=== PATIENT | male | born 1940 | race Caucasian/White ===

== ENCOUNTER 2020-07-14 07:07 | Emergency (ER) | payer MEDICARE, OTHER ==
[2020-07-14 07:56] LABS: BILIRUBIN,URINE NEGATIVE (NEGATIVE); GLUCOSE, URINE (UA) NEGATIVE (NEGATIVE); KETONES,URINE (UA) NEGATIVE (NEGATIVE); LEUKOCYTE ESTERASE, URINE NEGATIVE (NEGATIVE); NITRITE,URINE NEGATIVE (NEGATIVE); OCCULT BLOOD,URINE SMALL (NEGATIVE); PROTEIN,URINE NEGATIVE (NEGATIVE); UROBILINOGEN,URINE 0.2 (NORMAL) E.U./dL (NORMAL)
--- NOTE | 2020-07-14 08:03 | ED Physician Documentation ---
History of Present Illness - Stated complaint Stated Complaint: MALE - Chief complaint Chief Complaint: Abd Pain - History obtained from History obtained from: Patient - Additonal information Additional information: Patient comes emergency department chief complaint of urinary retention and increasing low abdominal discomfort since about 1500 yesterday. He states he has not had any urine output since then. Patient states that he has been somewhat constipated over the last few days, which is also unusual for him. He has had no stool incontinence. Patient does not have any low back issues that he knows of. He states he regularly goes on extended bike rides and that his back never bothers him. He has not had any weakness, numbness, or tingling in his lower extremities. Patient states that he has never had issues with urinary retention before. He is not known to have any prostate issues. He was not having any dysuria or frequency prior to onset of retention. No fever or chills. No nausea or vomiting. Patient states that he is otherwise fairly healthy. 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 He has a primary care physician but is not established with a urologist. No other complaints at this time. Review of Systems Ten Systems: 10 systems reviewed and negative Constitutional: reports: Reviewed and negative Eyes: reports: Reviewed and negative Ears: reports: Reviewed and negative Nose: reports: Reviewed and negative Throat: reports: Reviewed and negative Cardiac: reports: Reviewed and negative Respiratory: reports: Reviewed and negative GI: reports: Reviewed and negative : reports: Unable to Void Skin: reports: Reviewed and negative Musculoskeletal: reports: Reviewed and negative Neurologic: reports: Reviewed and negative Psychiatric: reports: Reviewed and negative Endocrine: reports: Reviewed and negative Immunocompromised: reports: Reviewed and negative PD PAST MEDICAL HISTORY - Past Medical History Past Medical History: Yes Cardiovascular: Hypertension Respiratory: None Neuro: None Endocrine/Autoimmune: None GI: None : None HEENT: None Psych: None Musculoskeletal: None Derm: None - Past Surgical History Past Surgical History: No - Allergies Allergies/Adverse Reactions: Allergies Allergy/AdvReac Type Severity Reaction Status Date / Time No Known Drug Allergies Allergy Verified 07/14/20 07:11 - Social History Does the pt smoke?: No Smoking Status: Never smoker Does the pt drink ETOH?: Yes Does the pt have substance abuse?: No - Immunizations Immunizations are current?: Yes - POLST Patient has POLST: No PD ED PE NORMAL - Vitals Vital signs reviewed: Yes - General General: Alert and oriented X 3, No acute distress - HEENT HEENT: Atraumatic, PERRL, EOMI, Moist mucous membranes - Neck Neck: Supple, no meningeal sign - Cardiac Cardiac: RRR, No murmur - Respiratory Respiratory: No respiratory distress, Clear bilaterally - Abdomen Abdomen: Soft, Other (Initially distended with moderate tenderness over suprapubic area.) - Derm Derm: Normal color, Warm and dry, No rash - Extremities Extremities: No deformity, No edema, No calf tenderness / cord - Neuro Neuro: Alert and oriented X 3, carton stamper 2-12 intact, No motor deficit, No sensory deficit, Normal speech - Psych Psych: Normal mood, Normal affect Results - Vitals Vitals: Vital Signs - 24 hr 07/14/20 07/14/20 07:11 09:22 Temperature 36.7 C 36.4 C L Heart Rate 84 84 Respiratory 18 18 Rate Blood Pressure 192/102 H 184/84 H O2 Saturation 97 99 Oxygen O2 Source Room air - Labs Labs: Laboratory Tests 07/14/20 07:45 Urine Color YELLOW Urine Clarity CLEAR Urine pH 6.0 Ur Specific [place] 1.010 Urine Protein NEGATIVE Urine Glucose (UA) NEGATIVE Urine Ketones NEGATIVE Urine Occult Blood SMALL H Urine Nitrite NEGATIVE Urine Bilirubin NEGATIVE Urine Urobilinogen 0.2 (NORMAL) Ur Leukocyte Esterase NEGATIVE Urine RBC 0-5 Urine WBC 0-3 Ur Squamous Epith Cells NONE SEEN Urine Bacteria None Seen Ur Microscopic Review INDICATED Urine Culture Comments NOT INDICATED PD MEDICAL DECISION MAKING - ED course Complexity details: reviewed results, re-evaluated patient, considered differential, d/w patient ED course: Bladder scan was performed and showed the patient to have over 900 cc of urine in his bladder. Hill catheter was placed and patient had immediate output of 1200 cc of urine, which was clear and mildly yellow. Urinalysis was sent. Patient reported feeling much better after emptying of his bladder. Nurse did note that Hill was quite difficult to pass, meeting a lot of resistance in the process. Leg bag was attached to the patient's Hill. I discussed with him the importance of follow-up with urology, and have given him a number of options. Discussed with the patient who would like the catheter to be in for 2 to 3 days, but if he cannot get an appointment with urology, then he may see his family doctor as soon as possible after 2 days to get the catheter removed and have another trial of urination. Patient was agreeable to this plan we have discussed the usual indications for return. Departure - Departure Disposition: 01 Home, Self Care Clinical Impression: Acute urinary retention Condition: Stable Instructions: ED Catheter Care Sergio, SHIVA Retention Urinary Male Follow-Up: Santy Dickerson MD [Physician No Access] - Alverto Caldwell MD [Physician No Access] - Julio Cesar Rowe MD [Provider Admit Priv/Credential] - Ernesto Rm MD [Provider Admit Priv/Credential] - Deanna Fairbanks MD [Physician No Access] - Comments: Your urinalysis looks goodno sign of urinary tract infection. You will need t o follow-up with urology, preferably by the end of the week, for a follow-up visit and possibly to have the catheter removed. Based on the difficulty passing the catheter, it is very likely that your prostate is enlarged. This is the most common cause of urinary retention in men. If you are unable to see the urologist in a timely manner, then you may see your primary care physician on Monday or next Monday to have the catheter removed there, and instead. However, it would still be most ideal if you do follow-up with the urologist, particularly if the urinary retention recurs. Discharge Date/Time: 07/14/20 09:25
[2020-07-14 08:10] LABS: BACTERIA,URINE None Seen /HPF (None Seen); CLARITY,URINE CLEAR (CLEAR); RBC,URINE 0-5 /HPF (0-5); SQUAMOUS EPITHELIAL CELL,UR NONE SEEN (<= Few); WBC,URINE 0-3 /HPF (0-3)
[2020-07-14 09:25] VITALS: BP 184/84
== END 2020-07-14 09:25 | disposition home or self-care (01) ==
LOC: ED 07:07
DX: R33.9 Retention of urine, unspecified (principal); I10 Essential (primary) hypertension
CPT/HCPCS: 51702; 51798; 81001; 81003; 87086; 99283; 99284

== ENCOUNTER 2021-02-21 04:31 | Emergency (ER) | payer MEDICARE ==
--- NOTE | 2021-02-21 04:39 | ED Physician Documentation ---
PD HPI MALE - Stated complaint Stated Complaint: L ABDOMINAL PX/URINARY RETENTION - History obtained from History obtained from: Patient, Family (spouse) - History of Present Illness Timing - onset: Today (this evening (02/20)) Timing - details: Gradual onset Pain level now: 8 Associated symptoms: Unable to urinate, Abdominal pain (suprapubic) Similar symptoms before: Diagnosis (T+R for similar symptoms earlier this year in this ED, had parra placed with large volume UO that correlated with resolution of symptoms.) Recently seen: Not recently seen - Additional information Additional information: Since this evening (02/20), patient has had gradual onset but steadily increasing suprapubic pain and fullness, inability to urinate despite increasing urge. He was T+R from this ED in July 2020 for same symptoms, symptoms resolved with placement of parra catheter. He has followed up with a urologist in [place]; he does not recall a specific diagnosis/reason given for the urinary retention. He does not recall having this problem any other time until tonight. Review of Systems Constitutional: denies: Fever GI: reports: Abdominal Pain (suprapubic). denies: Nausea, Vomiting : reports: Unable to Void PD PAST MEDICAL HISTORY - Past Medical History Cardiovascular: Hypertension Respiratory: None Neuro: None Endocrine/Autoimmune: None GI: None : None HEENT: None Psych: None Musculoskeletal: None Derm: None - Past Surgical History Past Surgical History: No - Present Medications Home Medications: Ambulatory Orders Medication Instructions Recorded Confirmed Tamsulosin [Flomax] 0.4 mg PO QID 02/21/21 02/21/21 - Allergies Allergies/Adverse Reactions: Allergies Allergy/AdvReac Type Severity Reaction Status Date / Time No Known Drug Allergies Allergy Verified 07/14/20 07:11 - Social History Does the pt smoke?: No Smoking Status: Never smoker Does the pt drink ETOH?: Yes Does the pt have substance abuse?: No - Immunizations Immunizations are current?: Yes - POLST Patient has POLST: No PD ED PE NORMAL - Vitals Vital signs reviewed: Yes - General General: Alert and oriented X 3, Well developed/nourished, Other (appears to be in significant discomfort, shifting around on bed at times and very uncomfortable when RN performs bladder scan) - Abdomen Abdomen: Soft, Other (suprapubic distention and TTP) Results - Vitals Vitals: Vital Signs - 24 hr 02/21/21 04:41 Temperature 36.5 C Heart Rate 77 Respiratory 16 Rate Blood Pressure 171/98 H O2 Saturation 98 Oxygen O2 Source Room air - Labs Labs: Laboratory Tests 02/21/21 04:56 Urine Color YELLOW Urine Clarity CLEAR Urine pH 6.0 Ur Specific [place] <=1.005 Urine Protein NEGATIVE Urine Glucose (UA) NEGATIVE Urine Ketones NEGATIVE Urine Occult Blood TRACE-INTA Urine Nitrite NEGATIVE Urine Bilirubin NEGATIVE Urine Urobilinogen 0.2 (NORMAL) Ur Leukocyte Esterase NEGATIVE Ur Microscopic Review NOT INDICATED Urine Culture Comments NOT INDICATED PD MEDICAL DECISION MAKING - ED course Complexity details: reviewed old records, reviewed results, re-evaluated patient, considered differential, d/w patient, d/w family ED course: beside bladder scan showed approximately 1000 milliliters. ED RN placed 16 Fr parra on first attempt; there was immediate brisk urine output, clear yellow, total of 1030 cc with complete resolution of symptoms. Reexam of abdomen reveals no distention and no tenderness to palpation. UA is negative except for trace blood on macro. Discharged with parra in place, instructed to follow up with his urologist but can follow up with his PMD if he cannot otherwise be seen within the next 5 days. I also presented the option to patient and his self- removal of the catheter if they are comfortable with this and provided they understand how to properly remove the catheter. They indicate they would consider this method if they cannot arrange timely follow up and syringe provided with instruction on how to remove the catheter. Also given option of returning to ED for catheter removal Departure - Departure Disposition: 01 Home, Self Care Clinical Impression: Urinary retention Condition: Good Instructions: ED Catheter Care Sergio, SHIVA Retention Urinary Male Comments: Follow up with your urologist this week for reevaluation and likely removal of the catheter. Discharge Date/Time: 02/21/21 05:38
[2021-02-21 04:45] VITALS: BP 171/98
[2021-02-21 05:07] LABS: BILIRUBIN,URINE NEGATIVE (NEGATIVE); CLARITY,URINE CLEAR (CLEAR); GLUCOSE, URINE (UA) NEGATIVE (NEGATIVE); KETONES,URINE (UA) NEGATIVE (NEGATIVE); LEUKOCYTE ESTERASE, URINE NEGATIVE (NEGATIVE); NITRITE,URINE NEGATIVE (NEGATIVE); OCCULT BLOOD,URINE TRACE-INTA (NEGATIVE); PROTEIN,URINE NEGATIVE (NEGATIVE); UROBILINOGEN,URINE 0.2 (NORMAL) E.U./dL (NORMAL)
== END 2021-02-21 05:38 | disposition home or self-care (01) ==
LOC: ED 04:31
DX: R33.9 Retention of urine, unspecified (principal)
CPT/HCPCS: 51702; 51798; 81001; 81003; 87086; 99283

== ENCOUNTER 2021-10-07 08:04 | Emergency (ER) | payer MEDICARE ==
--- NOTE | 2021-10-07 08:33 | ED Physician Documentation ---
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 This morning he awoke with suprapubic pain and inability to urinate and is lower abdomen has increased in size as the morning has gone on. Review of Systems Constitutional: denies: Fever Eyes: denies: Decreased vision Nose: denies: Congestion Throat: denies: Sore throat Respiratory: denies: Cough GI: reports: Abdominal Pain, Nausea. denies: Vomiting : reports: Unable to Void Skin: denies: Rash Musculoskeletal: denies: Neck pain, Back pain, Extremity pain Neurologic: denies: Generalized weakness, Focal weakness, Numbness PD PAST MEDICAL HISTORY - Past Medical History Cardiovascular: Hypertension Respiratory: None Neuro: None Endocrine/Autoimmune: None GI: None : None HEENT: None Psych: None Musculoskeletal: None Derm: None - Past Surgical History Past Surgical History: No - Present Medications Home Medications: Ambulatory Orders Medication Instructions Recorded Confirmed Tamsulosin [Flomax] 0.4 mg PO QID 02/21/21 10/07/21 Finasteride [Proscar] 5 mg PO DAILY 10/07/21 10/07/21 - Allergies Allergies/Adverse Reactions: Allergies Allergy/AdvReac Type Severity Reaction Status Date / Time No Known Drug Allergies Allergy Verified 10/07/21 08:24 - Social History Does the pt smoke?: No Smoking Status: Never smoker Does the pt drink ETOH?: Yes Does the pt have substance abuse?: No - Immunizations Immunizations are current?: Yes - POLST Patient has POLST: No PD ED PE NORMAL - Vitals Vital signs reviewed: Yes (hypertensive ) - General General: No acute distress, Well developed/nourished, Other (Does still recogni ze me has a broad smile and laughs a lot. Not able to give accurate details. ) - HEENT HEENT: Atraumatic, PERRL, EOMI - Respiratory Respiratory: No respiratory distress - Abdomen Abdomen: Other (firm tender lower abdomen with a full bladder on bedside ultrasound. ) - Derm Derm: Normal color, Warm and dry, No rash - Extremities Extremities: No deformity, No edema - Neuro Neuro: Alert and oriented X 3, solar thermal technician 2-12 intact, No motor deficit, No sensory deficit, Normal speech Eye Opening: Spontaneous Motor: Obeys Commands Verbal: Oriented GCS Score: 15 - Psych Psych: Normal mood, Normal affect Results - Vitals Vitals: Vital Signs - 24 hr 10/07/21 10/07/21 08:20 10:37 Temperature 36.6 C 36.5 C Heart Rate 58 L 75 Respiratory 14 16 Rate Blood Pressure 154/77 H 132/71 H O2 Saturation 97 100 Oxygen O2 Source Room air - Labs Labs: Laboratory Tests 10/07/21 09:45 Urine Color YELLOW Urine Clarity CLEAR Urine pH 6.0 Ur Specific [place] 1.010 Urine Protein NEGATIVE Urine Glucose (UA) NEGATIVE Urine Ketones NEGATIVE Urine Occult Blood TRACE-INTA Urine Nitrite NEGATIVE Urine Bilirubin NEGATIVE Urine Urobilinogen 0.2 (NORMAL) Ur Leukocyte Esterase NEGATIVE Ur Microscopic Review NOT INDICATED Urine Culture Comments NOT INDICATED Procedures - Bedside sono Bedside sono by EMP: With use of bedside ultrasound the bladder is imaged it is obviously full and it is tender. PD MEDICAL DECISION MAKING - ED course Complexity details: reviewed old records, reviewed results, re-evaluated patient, considered differential, d/w patient, d/w family ED course: 81-year-old male with acute urinary retention has a Hill catheter placed. Has had experience with this previously his is at the bedside and will be able to take care of his catheter. Departure - Departure Disposition: 01 Home, Self Care Clinical Impression: Acute urinary retention Condition: Stable Instructions: ED Catheter Care Hill, ED Retention Urinary Male Follow-Up: Covert-Rahul Dumont MD [Primary Care Provider] - Comments: Connor, today it looks like you have developed urinary retention again. There is no evidence of infection in the urine. You will likely need to wear this catheter for a little more than 1 week. Follow-up with your urologist. Discharge Date/Time: 10/07/21 10:38
[2021-10-07 10:02] LABS: BILIRUBIN,URINE NEGATIVE (NEGATIVE); GLUCOSE, URINE (UA) NEGATIVE (NEGATIVE); KETONES,URINE (UA) NEGATIVE (NEGATIVE); LEUKOCYTE ESTERASE, URINE NEGATIVE (NEGATIVE); NITRITE,URINE NEGATIVE (NEGATIVE); OCCULT BLOOD,URINE TRACE-INTA (NEGATIVE); PROTEIN,URINE NEGATIVE (NEGATIVE); UROBILINOGEN,URINE 0.2 (NORMAL) E.U./dL (NORMAL)
[2021-10-07 10:07] LABS: CLARITY,URINE CLEAR (CLEAR)
[2021-10-07 10:39] VITALS: BP 132/71
== END 2021-10-07 10:38 | disposition home or self-care (01) ==
LOC: ED 08:04
DX: R33.9 Retention of urine, unspecified (principal)
CPT/HCPCS: 51702; 51798; 81001; 81003; 87086; 99282; 99283

== ENCOUNTER 2021-10-10 14:37 | Emergency (ER) | payer MEDICARE ==
--- NOTE | 2021-10-10 14:52 | ED Physician Documentation ---
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 He was seen by my partner a few days ago for acute urinary retention and today is brought back by the daughter because he took a pair of scissors and cut the Hill catheter just proximal to the hub where it connects with the leg bag, but the catheter is still in place. The family very wisely capped the catheter and brought him here for evaluation. Review of Systems Unable to obtain: Dementia PD PAST MEDICAL HISTORY - Past Medical History Cardiovascular: Hypertension Respiratory: None Neuro: None Endocrine/Autoimmune: None GI: None : None HEENT: None Psych: None Musculoskeletal: None Derm: None - Past Surgical History Past Surgical History: No - Present Medications Home Medications: Ambulatory Orders Medication Instructions Recorded Confirmed Tamsulosin [Flomax] 0.4 mg PO QID 02/21/21 10/07/21 Finasteride [Proscar] 5 mg PO DAILY 10/07/21 10/07/21 - Allergies Allergies/Adverse Reactions: Allergies Allergy/AdvReac Type Severity Reaction Status Date / Time No Known Drug Allergies Allergy Verified 10/10/21 14:51 - Social History Does the pt smoke?: No Smoking Status: Never smoker Does the pt drink ETOH?: Yes Does the pt have substance abuse?: No - Immunizations Immunizations are current?: Yes - POLST Patient has POLST: No PD ED PE NORMAL - Vitals Vital signs reviewed: Yes - General General: Other (He is pleasant and cooperative but demented, he is here with his daughter and grandson.) - Abdomen Abdomen: Soft, Non tender - Male Male : Other (Hill catheter in place which is cut just proximal to the hub where it would interconnect with a leg bag. The port for balloon access is intact.) Results - Vitals Vitals: Vital Signs - 24 hr 10/10/21 14:51 Temperature 37.0 C Heart Rate 62 Respiratory 18 Rate Blood Pressure 167/90 H O2 Saturation 99 Oxygen O2 Source Room air PD MEDICAL DECISION MAKING - ED course ED course: Discussed with daughter options to remove the Hill and do a voiding trial versus replacement of the Hill and she opts for the former. 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 We remove the Hill catheter and subsequently he passed a voiding trial. Departure - Departure Disposition: 01 Home, Self Care Clinical Impression: Acute urinary retention Condition: Good Record reviewed to determine appropriate education?: Yes Comments: Return if he develops urinary retention again, otherwise continue current medications and follow-up with your primary.
[2021-10-10 14:53] VITALS: BP 167/90
== END 2021-10-10 16:34 | disposition home or self-care (01) ==
LOC: ED 14:37
DX: T83.098A Other mechanical complication of other urinary catheter, initial encounter (principal); R33.9 Retention of urine, unspecified
CPT/HCPCS: 99281